=== PATIENT | male | born 1965 | race Caucasian/White ===

== ENCOUNTER 2020-04-02 14:00 | Inpatient (IN) | payer OTHER ==
[~2020-04-02] VITALS: Ht 182.9 cm; Wt 113.4 kg
[2020-04-02] MEDS ORDERED: ATORVASTATIN CA20 MG (14:22)
[2020-04-02] MEDS ORDERED: LAMOTRIGINE100 MG (14:23)
[2020-04-02] MEDS ORDERED: FENOFIBRIC ACID35 MG (14:23)
[2020-04-02] MEDS ORDERED: PLAVIX75 MG (14:24)
[2020-04-02] MEDS ORDERED: AMLODIPINE-OLM1 EAC3 (14:25)
[2020-04-02] MEDS ORDERED: TOPROL XL50 M1 (14:25)
[2020-04-02] MEDS ORDERED: LANTUS SOL100 UNIT/1 (14:25)
[2020-04-02] MEDS ORDERED: HUMALOG JU100 UNIT/1 (14:25)
--- NOTE | 2020-04-02 14:26 | NUR ---
PTE REFIERE DIFICULTAD RESPIRATORIA VOMITOS Y DOLOR ABDOMINAL SE GARTH S/V YS EUBIAC EN AREA DE OBSERVACION
--- NOTE | 2020-04-02 14:43 | NUR ---
SE NOTIFICA A [place] SOBRE ABGS PENDIENTE
--- NOTE | 2020-04-02 15:31 | NUR ---
MRS. SANCHEZ EDUCA A PTE SOBRE [place] MEDICO YANNICK REFIERE ENTENDER. SE GARTH MUESTRAS DE LAB UTILIZANDO MEDIDAS ASEPTICAS, SE COLOCA H/L A PTE EL CUAL SE ENCUENTRA PATENTE Y NGUYEN DE EDEMA, SE ADMINISTRAN MEDS A PTE AMPARO ORDEN MEDICA, PTE TOLERA LOS MISMOS. PTE SE CONTINUA MONITORIANDO POR CAMBIOS.
[2020-04-14] MEDS ORDERED: HYDRALAZINE HCL50 MG PO (10:32)
[2020-04-14] MEDS ORDERED: LASIX20 MG PO (10:32)
[2020-04-14] MEDS ORDERED: LIPITOR20 MG PO (10:32)
[2020-04-14] MEDS ORDERED: PLAVIX75 MG PO (10:32)
[2020-04-14] MEDS ORDERED: AMLODIPINE BESYL5 MG PO (10:32)
[2020-04-14] MEDS ORDERED: METOLAZONE2.5 MG PO (10:32)
[2020-04-14] MEDS ORDERED: TOPROL XL100 M1 PO (10:32)
[2020-04-14] MEDS ORDERED: CATAPRES0.2 MG PO (10:32)
== END 2020-04-14 14:24 | disposition home or self-care (01) | DRG 177 ==
LOC: ER 14:00 → MEDJ 21:36
PROVIDERS: ADMIT Internal Medicine; ATTEND Internal Medicine
PROC: 8E0ZXY6 Isolation (ICD-10-PCS; principal; 2020-04-02)
PROC: 4A033R1 Measurement of Arterial Saturation, Peripheral, Percutaneous Approach (ICD-10-PCS; 2020-04-02)
PROC: 3E0F7SF Introduction of Other Gas into Respiratory Tract, Via Natural or Artificial Opening (ICD-10-PCS; 2020-04-02)
PROC: BW40ZZZ Ultrasonography of Abdomen (ICD-10-PCS; 2020-04-02)
PROC: B24BZZZ Ultrasonography of Heart with Aorta (ICD-10-PCS; 2020-04-03)
PROC: 4A12X4Z Monitoring of Cardiac Electrical Activity, External Approach (ICD-10-PCS; 2020-04-03)
PROC: 5A09457 Assistance with Respiratory Ventilation, 24-96 Consecutive Hours, Continuous Positive Airway Pressure (ICD-10-PCS; 2020-04-09)
PROC: CB2YYZZ Tomographic (Tomo) Nuclear Medicine Imaging of Respiratory System using Other Radionuclide (ICD-10-PCS; 2020-04-10)
DX: U07.1 COVID-19 (principal); J12.89 Other viral pneumonia; J96.01 Acute respiratory failure with hypoxia; N17.8 Other acute kidney failure; N18.31 Chronic kidney disease, stage 3a; E11.21 Type 2 diabetes mellitus with diabetic nephropathy; E66.8 Other obesity; D64.9 Anemia, unspecified; I11.0 Hypertensive heart disease with heart failure; I50.9 Heart failure, unspecified; E11.65 Type 2 diabetes mellitus with hyperglycemia; Z53.29 Procedure and treatment not carried out because of patient's decision for other reasons; Z91.19 Patient's noncompliance with other medical treatment and regimen